=== PATIENT | male | born 1935 | race Caucasian/White ===

== ENCOUNTER 2021-04-18 17:39 | Inpatient (IN) | payer BC, SELFPAY ==
[~2021-04-18] VITALS: Ht 177.8 cm; Wt 81.6 kg
[~2021-04-18 17:39] MED LIST: ALBMDI INH; ASCO500T20 PO; DEXA6TAB5 PO; DOXY-244 PO; NITR-85 PO; TAMS-11 PO; VITD2000 PO; ZINC220T4 PO
[2021-04-18 17:58] VITALS: BP_SYST 175
[2021-04-18] MEDS ORDERED: MORPHINE 4 MG INJ. 4 MG/ML VIAL IVP ONE (21:30)
[2021-04-18 21:58] LABS: BASOPHILS # (AUTO) 0.1 K/uL (0.0-0.2); BASOPHILS % (AUTO) 0.4 % (0.0-2.0); EOSINOPHILS % (AUTO) 0.1 % (0.0-4.0); LYMPHOCYTES # (AUTO) 1.2 K/uL (1.0-5.5); MEAN CORPUSCULAR HEMOGLOBIN 32 pg (27-31); MEAN CORPUSCULAR HGB CONC 33 % (32-36); MEAN CORPUSCULAR VOLUME 95 fL (79.0-98.0); MONOCYTES % (AUTO) 6.8 % (1.7-9.3); NEUTROPHILS # (AUTO) 12.2 K/uL (1.8-7.7); NEUTROPHILS % (AUTO) 84.7 % (40.0-70.0); PLATELET COUNT (AUTO) 260 K/uL (130-430); RED BLOOD CELL COUNT(AUTO) 3.47 MIL/uL (4.2-6.2); RED CELL DISTRIBUTION WIDTH 12.8 % (9.0-15.0); WHITE BLOOD COUNT (AUTO) 14.4 K/uL (4.8-10.8)
[2021-04-18 22:30] LABS: ANION GAP 9 (5-15); CALCIUM 9.3 mg/dL (8.4-11.0); CHLORIDE 104 mmol/L (98-107); CREATININE 2.16 mg/dL (0.55-1.30); GLUCOSE 133 mg/dL (70-99); POTASSIUM 5.2 mmol/L (3.5-5.1); SODIUM SERUM 137 mmol/L (136-145); UREA NITROGEN, BLOOD 34 mg/dL (8-21)
[2021-04-18 22:41] LABS: PROTHROMBIN TIME 10.2 SECS (9.5-12.5)
[2021-04-19] MEDS ORDERED: LORazepam 2 MG/ML VIAL IVP ONE
[2021-04-19] MEDS ORDERED: HYDROcodone/ACETAMIN 5-325 MG TAB (NORCO/ VICODIN) PO PRN (00:45)
[2021-04-19] MEDS ORDERED: MORPHINE 4 MG INJ. 4 MG/ML VIAL IVP PRN (00:45)
[2021-04-19] MEDS ORDERED: MORPHINE 2 MG/ML INJ. SYRINGE IVP PRN (00:45)
[2021-04-19] MEDS ORDERED: NACL 0.9% 1,000 ML IV SCH (00:45)
[2021-04-19 08:13] VITALS: BP_SYST 153
[2021-04-19 08:29] VITALS: BP_SYST 153
[2021-04-19] MEDS ORDERED: ALBUTEROL SULFATE 0.083% 2.5 MG/3 ML VIAL.NEB INH PRN (10:00)
[2021-04-19] MEDS ORDERED: IPRATROPIUM BROM 0.5 MG/2.5 ML VIAL.NEB (ATROVENT) INH PRN (10:00)
[2021-04-19 10:29] LABS: BASOPHILS # (AUTO) 0.1 K/uL (0.0-0.2); BASOPHILS % (AUTO) 0.6 % (0.0-2.0); EOSINOPHILS # (AUTO) 0.2 K/uL (0.0-0.4); EOSINOPHILS % (AUTO) 1.9 % (0.0-4.0); HEMATOCRIT 31.6 % (36-54); HEMOGLOBIN 10.6 g/dL (14.0-18.0); LYMPHOCYTES # (AUTO) 1.6 K/uL (1.0-5.5); LYMPHOCYTES % (AUTO) 14.1 % (20.5-51.5); MEAN CORPUSCULAR HEMOGLOBIN 32 pg (27-31); MEAN CORPUSCULAR HGB CONC 34 % (32-36); MEAN CORPUSCULAR VOLUME 95 fL (79.0-98.0); MONOCYTES # (AUTO) 1.1 K/uL (0.0-1.0); MONOCYTES % (AUTO) 9.7 % (1.7-9.3); NEUTROPHILS # (AUTO) 8.5 K/uL (1.8-7.7); NEUTROPHILS % (AUTO) 73.7 % (40.0-70.0); PLATELET COUNT (AUTO) 227 K/uL (130-430); RED BLOOD CELL COUNT(AUTO) 3.33 MIL/uL (4.2-6.2); WHITE BLOOD COUNT (AUTO) 11.5 K/uL (4.8-10.8)
[2021-04-19 10:40] LABS: ANION GAP 10 (5-15); CALCIUM 8.7 mg/dL (8.4-11.0); CHLORIDE 111 mmol/L (98-107); CREATININE 1.97 mg/dL (0.55-1.30); GLUCOSE 105 mg/dL (70-99); POTASSIUM 4.9 mmol/L (3.5-5.1); SODIUM SERUM 146 mmol/L (136-145); UREA NITROGEN, BLOOD 32 mg/dL (8-21)
[2021-04-19 10:46] LABS: ALANINE AMINOTRANSFERASE 21 U/L (12-78); ALBUMIN 3.4 g/dL (3.4-4.8); ASPARTATE AMINOTRANSFERASE 25 U/L (10-37); TOTAL BILIRUBIN 0.8 mg/dL (0.0-1.0)
[2021-04-19] MEDS: IPRATROPIUM BROM 0.5 MG/2.5 ML VIAL.NEB (ATROVENT) INH SCH ×4 (11:00→23:00)
[2021-04-19] MEDS: ALBUTEROL SULFATE 0.083% 2.5 MG/3 ML VIAL.NEB INH SCH ×4 (11:00→23:00)
[2021-04-19] MEDS ORDERED: TAMSULOSIN HCL 0.4 MG CAP PO ONE (11:45)
[2021-04-19 12:12] VITALS: BP_SYST 158
[2021-04-19] MEDS ORDERED: hydrALAZINE HCL 25 MG TABLET PO PRN (15:45)
[2021-04-19] MEDS ORDERED: ASPIRIN 81 MG TABLET(ECOTRIN) PO ONE (15:45)
[2021-04-19 16:28] VITALS: BP_SYST 150
[2021-04-19 19:13] LABS: BILIRUBIN,URINE NEGATIVE (NEGATIVE); BLOOD, URINE 3+ (NEGATIVE); CLARITY/URINE CLEAR (CLEAR); COLOR,URINE YELLOW (YELLOW); GLUCOSE,URINE NEGATIVE (NEGATIVE); KETONES,URINE NEGATIVE (NEGATIVE); LEUKOCYTE ESTERASE ,URINE NEGATIVE (NEGATIVE); NITRITE, URINE NEGATIVE (NEGATIVE); PH,URINE 5.5 (5.0-8.0); PROTEIN URINE TRACE (NEGATIVE); UROBILINOGEN,URINE 0.2 (0.2-1.0)
[2021-04-19 19:18] LABS: URINE SULFO SALICYLIC ACID NEGATIVE (NEGATIVE)
[2021-04-19 19:21] LABS: BACTERIA,URINE None Seen /HPF (None Seen); CALCIUM OXALATE CRYSTALS,UR None Seen /HPF (None Seen); CALCIUM PHOSPHATE CRYSTALS,UR None Seen /HPF (None Seen); TRICHOMONAS,URINE None Seen /HPF (None Seen); WBC,URINE NONE SEEN /HPF (0-3); YEAST,URINE None Seen /HPF (None Seen)
[2021-04-19 20:00] VITALS: BP_SYST 142
[2021-04-20] VITALS: BP_SYST 131
[2021-04-20] MEDS: ALBUTEROL SULFATE 0.083% 2.5 MG/3 ML VIAL.NEB INH SCH ×6 (03:00→23:00)
[2021-04-20] MEDS: IPRATROPIUM BROM 0.5 MG/2.5 ML VIAL.NEB (ATROVENT) INH SCH ×6 (03:00→23:00)
[2021-04-20 06:25] LABS: BILIRUBIN,URINE NEGATIVE (NEGATIVE); BLOOD, URINE 3+ (NEGATIVE); CLARITY/URINE CLEAR (CLEAR); COLOR,URINE YELLOW (YELLOW); GLUCOSE,URINE NEGATIVE (NEGATIVE); KETONES,URINE NEGATIVE (NEGATIVE); LEUKOCYTE ESTERASE ,URINE TRACE (NEGATIVE); NITRITE, URINE NEGATIVE (NEGATIVE); PROTEIN URINE 1+ (NEGATIVE); UROBILINOGEN,URINE 0.2 (0.2-1.0)
[2021-04-20 06:31] LABS: BASOPHILS % (AUTO) 0.3 % (0.0-2.0); EOSINOPHILS # (AUTO) 0.8 K/uL (0.0-0.4); EOSINOPHILS % (AUTO) 6.8 % (0.0-4.0); HEMOGLOBIN 9.4 g/dL (14.0-18.0); LYMPHOCYTES # (AUTO) 2.8 K/uL (1.0-5.5); LYMPHOCYTES % (AUTO) 24.1 % (20.5-51.5); MEAN CORPUSCULAR HEMOGLOBIN 32 pg (27-31); MEAN CORPUSCULAR HGB CONC 34 % (32-36); MEAN CORPUSCULAR VOLUME 96 fL (79.0-98.0); MONOCYTES # (AUTO) 1.3 K/uL (0.0-1.0); MONOCYTES % (AUTO) 10.6 % (1.7-9.3); NEUTROPHILS # (AUTO) 6.9 K/uL (1.8-7.7); NEUTROPHILS % (AUTO) 58.2 % (40.0-70.0); PLATELET COUNT (AUTO) 194 K/uL (130-430); RED BLOOD CELL COUNT(AUTO) 2.93 MIL/uL (4.2-6.2); WHITE BLOOD COUNT (AUTO) 11.8 K/uL (4.8-10.8)
[2021-04-20 06:53] LABS: ANION GAP 9 (5-15); CALCIUM 8.4 mg/dL (8.4-11.0); CHLORIDE 104 mmol/L (98-107); CREATININE 2.06 mg/dL (0.55-1.30); GLUCOSE 107 mg/dL (70-99); POTASSIUM 4.4 mmol/L (3.5-5.1); SODIUM SERUM 136 mmol/L (136-145); UREA NITROGEN, BLOOD 34 mg/dL (8-21)
[2021-04-20 07:46] LABS: BACTERIA,URINE None Seen /HPF (None Seen); MUCUS,URINE 1+ /LPF (None Seen); RBC,URINE 20-50 /HPF (0-3)
[2021-04-20 08:00] VITALS: BP_SYST 149
[2021-04-20] MEDS ORDERED: SEVOFLURANE 15 MIN GAS INH ONE (08:16)
[2021-04-20] MEDS ORDERED: WATER FOR IRRIGATION,STERILE 1,000 ML IRRIG.SOLN IR ONE (08:16)
[2021-04-20] MEDS ORDERED: NS IRRIG SOLN 1000 ML IR ONE (08:16)
[2021-04-20] MEDS ORDERED: KETOROLAC TROMETHAMINE 30 MG VIAL IVP ONE (08:16)
[2021-04-20] MEDS ORDERED: METOCLOPRAMIDE HCL 10 MG/2 ML VIAL IVP ONE (08:16)
[2021-04-20] MEDS ORDERED: BUPIVACAINE /EPINEPHRINE/PF 0.5% 30 ML VIAL INJ ONE (08:16)
[2021-04-20] MEDS ORDERED: ROCURONIUM BROMIDE 10 MG/ML (ZEMURON) IV ONE (08:16)
[2021-04-20] MEDS ORDERED: ePHEDrine sulfate 50 MG/ML VIAL IVP ONE (08:16)
[2021-04-20] MEDS ORDERED: PROPOFOL 200MG/ 20ML VIAL (DIPRIVAN) IV ONE (08:16)
[2021-04-20] MEDS ORDERED: GLYCOPYRROLATE 0.2 MG/ML VIAL IJ ONE (08:16)
[2021-04-20] MEDS ORDERED: CEFAZOLIN 2 GM IVPB PREMIX 50 ML IV ONE (08:16)
[2021-04-20] MEDS ORDERED: DEXAMETHASONE SOD PHOSPHATE 4 MG/ML VIAL IVP ONE (08:16)
[2021-04-20] MEDS ORDERED: TRANEXAMIC ACID 1,000 MG/10 ML VIAL IV ONE (08:16)
[2021-04-20] MEDS ORDERED: fentaNYL CITRATE/PF 100 MCG/2 ML AMP IVP ONE (08:16)
[2021-04-20] MEDS ORDERED: NEOSTIGMINE METHYLSULFATE 1 MG/ML, 10 ML VIAL IVP ONE (08:16)
[2021-04-20] MEDS ORDERED: LR 1,000 ML IV.SOLN IV ONE (08:16)
[2021-04-20] MEDS ORDERED: ONDANSETRON HCL 4 MG/2 ML VIAL IVP ONE (08:16)
[2021-04-20 08:53] LABS: PROTHROMBIN TIME 10.6 SECS (9.5-12.5)
[2021-04-20] MEDS: ASPIRIN 81 MG TABLET(ECOTRIN) PO SCH (09:00)
[2021-04-20] MEDS: TAMSULOSIN HCL 0.4 MG CAP PO SCH (09:00)
[2021-04-20] MEDS ORDERED: KETOROLAC TROMETHAMINE 30 MG VIAL IVP PRN (09:15)
[2021-04-20] MEDS ORDERED: HYDROmorphone 1 MG/ML INJ. CARTRIDGE IVP PRN (09:15)
[2021-04-20] MEDS ORDERED: NALOXONE HCL 0.4 MG/ML AMP (NARCAN) IVP PRN ×3 (09:15→10:45)
[2021-04-20] MEDS ORDERED: LR 1,000 ML IV SCH (09:15)
[2021-04-20] MEDS ORDERED: ONDANSETRON HCL 4 MG/2 ML VIAL IVP PRN (09:15)
[2021-04-20] MEDS ORDERED: LABETALOL 100 MG/ 20ML VIAL IVP PRN (09:15)
[2021-04-20] MEDS ORDERED: MEPERIDINE HCL/PF 25 MG/ML DISP.SYRIN IVP PRN (09:15)
[2021-04-20] MEDS ORDERED: BUPIVACAINE LIPOSOME/PF 266 MG/20 ML VIAL INFIL ONE (09:45)
[2021-04-20 11:30] VITALS: BP_SYST 123
[2021-04-20] MEDS ORDERED: HYDROcodone/ACETAMIN 5-325 MG TAB (NORCO/ VICODIN) PO PRN (12:30)
[2021-04-20] MEDS: CEFAZOLIN 1 GM IVPB PREMIX 50 ML IV SCH ×2 (14:23→21:05)
[2021-04-20 16:01] VITALS: BP_SYST 107
[2021-04-20 16:04] LABS: ANION GAP 9 (5-15); CALCIUM 7.8 mg/dL (8.4-11.0); CHLORIDE 103 mmol/L (98-107); CREATININE 2.23 mg/dL (0.55-1.30); GLUCOSE 231 mg/dL (70-99); POTASSIUM 4.7 mmol/L (3.5-5.1); SODIUM SERUM 135 mmol/L (136-145); UREA NITROGEN, BLOOD 38 mg/dL (8-21)
[2021-04-20 16:08] LABS: ALANINE AMINOTRANSFERASE 16 U/L (12-78); ALBUMIN 2.6 g/dL (3.4-4.8); ASPARTATE AMINOTRANSFERASE 26 U/L (10-37); TOTAL BILIRUBIN 0.3 mg/dL (0.0-1.0)
[2021-04-20 20:00] VITALS: BP_SYST 121
[2021-04-20] MEDS: ASCORBIC ACID 500 MG TABLET PO SCH (21:04)
[2021-04-20] MEDS: DOCUSATE SODIUM 100 MG CAPSULE PO SCH (21:04)
[2021-04-21 00:09] VITALS: BP_SYST 145
[2021-04-21] MEDS: ALBUTEROL SULFATE 0.083% 2.5 MG/3 ML VIAL.NEB INH SCH ×6 (03:00→23:00)
[2021-04-21] MEDS: IPRATROPIUM BROM 0.5 MG/2.5 ML VIAL.NEB (ATROVENT) INH SCH ×6 (03:00→23:00)
[2021-04-21 08:03] LABS: BASOPHILS % (AUTO) 0.2 % (0.0-2.0); EOSINOPHILS # (AUTO) 0.2 K/uL (0.0-0.4); EOSINOPHILS % (AUTO) 1.2 % (0.0-4.0); HEMATOCRIT 24.3 % (36-54); HEMOGLOBIN 8.2 g/dL (14.0-18.0); LYMPHOCYTES # (AUTO) 2.3 K/uL (1.0-5.5); LYMPHOCYTES % (AUTO) 17.9 % (20.5-51.5); MEAN CORPUSCULAR HEMOGLOBIN 32 pg (27-31); MEAN CORPUSCULAR HGB CONC 34 % (32-36); MEAN CORPUSCULAR VOLUME 95 fL (79.0-98.0); MONOCYTES # (AUTO) 1.6 K/uL (0.0-1.0); MONOCYTES % (AUTO) 12.5 % (1.7-9.3); NEUTROPHILS # (AUTO) 8.9 K/uL (1.8-7.7); NEUTROPHILS % (AUTO) 68.2 % (40.0-70.0); PLATELET COUNT (AUTO) 184 K/uL (130-430); RED BLOOD CELL COUNT(AUTO) 2.57 MIL/uL (4.2-6.2); RED CELL DISTRIBUTION WIDTH 12.9 % (9.0-15.0); WHITE BLOOD COUNT (AUTO) 13.1 K/uL (4.8-10.8)
[2021-04-21 08:05] VITALS: BP_SYST 117
[2021-04-21] MEDS: ASPIRIN 81 MG TABLET(ECOTRIN) PO SCH (08:48)
[2021-04-21] MEDS: ASCORBIC ACID 500 MG TABLET PO SCH ×2 (08:48→21:02)
[2021-04-21] MEDS: TAMSULOSIN HCL 0.4 MG CAP PO SCH (08:48)
[2021-04-21] MEDS: ENOXAPARIN SODIUM 40 MG/0.4 ML SYRINGE SUBCUT SCH (08:50)
[2021-04-21] MEDS: DOCUSATE SODIUM 100 MG CAPSULE PO SCH ×2 (08:51→21:02)
[2021-04-21 09:03] LABS: ANION GAP 8 (5-15); CALCIUM 7.9 mg/dL (8.4-11.0); CHLORIDE 104 mmol/L (98-107); CREATININE 2.21 mg/dL (0.55-1.30); GLUCOSE 148 mg/dL (70-99); POTASSIUM 4.5 mmol/L (3.5-5.1); SODIUM SERUM 136 mmol/L (136-145); UREA NITROGEN, BLOOD 43 mg/dL (8-21)
[2021-04-21 11:21] VITALS: BP_SYST 118
[2021-04-21 15:43] VITALS: BP_SYST 112
[2021-04-21 20:00] VITALS: BP_SYST 128
[2021-04-21] MEDS: HYDROcodone/ACETAMIN 5-325 MG TAB (NORCO/ VICODIN) PO PRN (21:02)
[2021-04-22] VITALS: BP_SYST 111
[2021-04-22] MEDS: ALBUTEROL SULFATE 0.083% 2.5 MG/3 ML VIAL.NEB INH SCH ×6 (03:00→23:00)
[2021-04-22] MEDS: IPRATROPIUM BROM 0.5 MG/2.5 ML VIAL.NEB (ATROVENT) INH SCH ×6 (03:00→23:00)
[2021-04-22 07:02] LABS: BASOPHILS % (AUTO) 0.3 % (0.0-2.0); EOSINOPHILS # (AUTO) 0.8 K/uL (0.0-0.4); EOSINOPHILS % (AUTO) 6.9 % (0.0-4.0); HEMATOCRIT 23.2 % (36-54); HEMOGLOBIN 7.7 g/dL (14.0-18.0); LYMPHOCYTES # (AUTO) 3.3 K/uL (1.0-5.5); LYMPHOCYTES % (AUTO) 27.2 % (20.5-51.5); MEAN CORPUSCULAR HEMOGLOBIN 32 pg (27-31); MEAN CORPUSCULAR HGB CONC 33 % (32-36); MEAN CORPUSCULAR VOLUME 96 fL (79.0-98.0); MONOCYTES # (AUTO) 1.6 K/uL (0.0-1.0); MONOCYTES % (AUTO) 13.4 % (1.7-9.3); NEUTROPHILS # (AUTO) 6.3 K/uL (1.8-7.7); NEUTROPHILS % (AUTO) 52.2 % (40.0-70.0); PLATELET COUNT (AUTO) 202 K/uL (130-430); RED BLOOD CELL COUNT(AUTO) 2.43 MIL/uL (4.2-6.2); RED CELL DISTRIBUTION WIDTH 12.9 % (9.0-15.0); WHITE BLOOD COUNT (AUTO) 12.1 K/uL (4.8-10.8)
[2021-04-22 08:00] VITALS: BP_SYST 136
[2021-04-22] MEDS: ASCORBIC ACID 500 MG TABLET PO SCH ×2 (08:36→20:57)
[2021-04-22] MEDS: TAMSULOSIN HCL 0.4 MG CAP PO SCH (08:36)
[2021-04-22] MEDS: ENOXAPARIN SODIUM 40 MG/0.4 ML SYRINGE SUBCUT SCH (08:36)
[2021-04-22] MEDS: ASPIRIN 81 MG TABLET(ECOTRIN) PO SCH (08:37)
[2021-04-22 08:44] VITALS: BP_SYST 111
[2021-04-22] MEDS: DOCUSATE SODIUM 100 MG CAPSULE PO SCH ×2 (09:00→20:58)
[2021-04-22 09:48] LABS: ALANINE AMINOTRANSFERASE 12 U/L (12-78); ALBUMIN 2.2 g/dL (3.4-4.8); ANION GAP 10 (5-15); ASPARTATE AMINOTRANSFERASE 37 U/L (10-37); CALCIUM 7.4 mg/dL (8.4-11.0); CHLORIDE 100 mmol/L (98-107); CREATININE 2.11 mg/dL (0.55-1.30); GLUCOSE 111 mg/dL (70-99); POTASSIUM 4.4 mmol/L (3.5-5.1); SODIUM SERUM 130 mmol/L (136-145); TOTAL BILIRUBIN 0.4 mg/dL (0.0-1.0); UREA NITROGEN, BLOOD 39 mg/dL (8-21)
[2021-04-22 12:00] VITALS: BP_SYST 124
[2021-04-22 18:05] VITALS: BP_SYST 130
[2021-04-22 20:00] VITALS: BP_SYST 119
[2021-04-23 00:02] VITALS: BP_SYST 129
[2021-04-23] MEDS: HYDROcodone/ACETAMIN 5-325 MG TAB (NORCO/ VICODIN) PO PRN (03:34)
[2021-04-23] MEDS: ALBUTEROL SULFATE 0.083% 2.5 MG/3 ML VIAL.NEB INH SCH ×3 (07:00→14:59)
[2021-04-23] MEDS: IPRATROPIUM BROM 0.5 MG/2.5 ML VIAL.NEB (ATROVENT) INH SCH ×3 (07:00→14:59)
[2021-04-23 08:00] VITALS: BP_SYST 122
[2021-04-23] MEDS: ASPIRIN 81 MG TABLET(ECOTRIN) PO SCH (08:25)
[2021-04-23] MEDS: TAMSULOSIN HCL 0.4 MG CAP PO SCH (08:25)
[2021-04-23] MEDS: DOCUSATE SODIUM 100 MG CAPSULE PO SCH (08:25)
[2021-04-23] MEDS: ASCORBIC ACID 500 MG TABLET PO SCH (08:25)
[2021-04-23] MEDS: ENOXAPARIN SODIUM 40 MG/0.4 ML SYRINGE SUBCUT SCH (08:31)
[2021-04-23 11:24] VITALS: BP_SYST 117
[2021-04-23 15:56] VITALS: BP_SYST 120
[2021-04-23 16:08] LABS: HEMATOCRIT 25.8 % (36-54); HEMOGLOBIN 8.7 g/dL (14.0-18.0); MEAN CORPUSCULAR HEMOGLOBIN 32 pg (27-31); MEAN CORPUSCULAR HGB CONC 34 % (32-36); MEAN CORPUSCULAR VOLUME 94 fL (79.0-98.0); PLATELET COUNT (AUTO) 283 K/uL (130-430); RED BLOOD CELL COUNT(AUTO) 2.73 MIL/uL (4.2-6.2); RED CELL DISTRIBUTION WIDTH 12.7 % (9.0-15.0); WHITE BLOOD COUNT (AUTO) 12.3 K/uL (4.8-10.8)
[2021-04-23 18:46] LABS: BASOPHILS % (MANUAL) 0 % (0-2); EOSINOPHILS % (MANUAL) 4 % (0-7); LYMPHOCYTES % (MANUAL) 26 % (20-46); MONOCYTES % (MANUAL) 11 % (0-11)
[2021-04-23 20:21] VITALS: BP_SYST 141
== END 2021-04-23 21:15 | DRG 522 ==
LOC: SED 17:39 → STU 04-19 00:39 → SMU 04-19 07:28
PROVIDERS: ADMIT Internal Medicine Hospice and Palliative Medicine; ATTEND Internal Medicine Hospice and Palliative Medicine
PROC: 0SRS0JZ Replacement of Left Hip Joint, Femoral Surface with Synthetic Substitute, Open Approach (ICD-10-PCS; principal; 2021-04-20 07:30)
DX: S72.012A Unspecified intracapsular fracture of left femur, initial encounter for closed fracture (principal); I25.10 Atherosclerotic heart disease of native coronary artery without angina pectoris; M16.12 Unilateral primary osteoarthritis, left hip; Z20.822 Contact with and (suspected) exposure to COVID-19; S50.02XA Contusion of left elbow, initial encounter; I13.10 Hypertensive heart and chronic kidney disease without heart failure, with stage 1 through stage 4 chronic kidney disease, or unspecified chronic kidney disease; E03.9 Hypothyroidism, unspecified; N40.0 Benign prostatic hyperplasia without lower urinary tract symptoms; N18.30 Chronic kidney disease, stage 3 unspecified; W01.0XXA Fall on same level from slipping, tripping and stumbling without subsequent striking against object, initial encounter; Z98.61 Coronary angioplasty status; Z79.899 Other long term (current) drug therapy; I25.2 Old myocardial infarction; Y93.89 Activity, other specified; Y92.89 Other specified places as the place of occurrence of the external cause; Y99.8 Other external cause status
CPT/HCPCS: 36415; 71045; 72170-TC; 73502; 80048; 80053; 81000; 82962; 85007; 85025; 85027; 85610-TC; 85730-TC; 86886; 86900; 86901; 87081; 88305; 88311; 93005; 93306; 94760; 96374; 97110-GP; 97116-GP; 97530-GP; 99285; C1713; C1776; C9290; J0690; J1100; J1650; J1885; J2060; J2270; J2405; J2704; J2710; J2765; J3010; J3490; J7120; J7613

== ENCOUNTER 2023-10-16 13:42 | Inpatient (IN) | payer BC ==
[~2023-10-16] VITALS: Ht 175.3 cm; Wt 75.7 kg
[~2023-10-16 13:42] MED LIST changes: -DEXA6TAB5 PO; -DOXY-244 PO; -NITR-85 PO; -ZINC220T4 PO
[2023-10-16 15:18] LABS: BASOPHILS % (AUTO) 0.4 % (0.0-2.0); EOSINOPHILS # (AUTO) 0.1 K/uL (0.0-0.4); EOSINOPHILS % (AUTO) 0.5 % (0.0-4.0); HEMATOCRIT 25.1 % (36-54); HEMOGLOBIN 8.4 g/dL (14.0-18.0); LYMPHOCYTES % (AUTO) 10.9 % (20.5-51.5); MEAN CORPUSCULAR HEMOGLOBIN 31 pg (27-31); MEAN CORPUSCULAR HGB CONC 34 % (32-36); MEAN CORPUSCULAR VOLUME 91 fL (79.0-98.0); MONOCYTES # (AUTO) 0.9 K/uL (0.0-1.0); MONOCYTES % (AUTO) 9.4 % (1.7-9.3); NEUTROPHILS # (AUTO) 7.3 K/uL (1.8-7.7); NEUTROPHILS % (AUTO) 78.8 % (40.0-70.0); PLATELET COUNT (AUTO) 417 K/uL (130-430); RED BLOOD CELL COUNT(AUTO) 2.76 MIL/uL (4.2-6.2); RED CELL DISTRIBUTION WIDTH 13.3 % (9.0-15.0); WHITE BLOOD COUNT (AUTO) 9.3 K/uL (4.8-10.8)
[2023-10-16 15:33] LABS: INR 1.1 (0.80-1.20); PROTHROMBIN TIME 11.1 SECS (9.5-12.5)
[2023-10-16 15:38] LABS: BILIRUBIN,URINE NEGATIVE (NEGATIVE); BLOOD, URINE NEGATIVE (NEGATIVE); CLARITY/URINE CLEAR (CLEAR); COLOR,URINE YELLOW (YELLOW); GLUCOSE,URINE NEGATIVE (NEGATIVE); KETONES,URINE NEGATIVE (NEGATIVE); LEUKOCYTE ESTERASE ,URINE NEGATIVE (NEGATIVE); NITRITE, URINE NEGATIVE (NEGATIVE); PROTEIN URINE TRACE (NEGATIVE); UROBILINOGEN,URINE 0.2 (0.2-1.0)
[2023-10-16 16:09] LABS: ALANINE AMINOTRANSFERASE 11 U/L (12-78); AMYLASE 51 U/L (0-100); ANION GAP 17 (5-15); ASPARTATE AMINOTRANSFERASE 15 U/L (10-37); BILIRUBIN,DIRECT 0.1 mg/dL (0.0-0.3); CALCIUM 8.8 mg/dL (8.4-11.0); CARBON DIOXIDE 18 mmol/L (23-29); CHLORIDE 102 mmol/L (98-107); CREATININE 2.55 mg/dL (0.55-1.30); GLUCOSE 118 mg/dL (74-106); LACTATE DEHYDROGENASE 172 U/L (85-227); LIPASE 50 U/L (16-77); POTASSIUM 4.3 mmol/L (3.5-5.1); SODIUM SERUM 137 mmol/L (136-145); TOTAL BILIRUBIN 0.4 mg/dL (0.0-1.0); TOTAL PROTEIN, SERUM 8.1 g/dL (6.4-8.3); UREA NITROGEN, BLOOD 45 mg/dL (8-21)
[2023-10-16] MEDS: PANTOPRAZOLE SODIUM 80 MG in NS 100 ML IVP ONE (16:26)
[2023-10-16] MEDS ORDERED: PANTOPRAZOLE SODIUM 40 MG/VIAL (PROTONIX) ONE (16:29)
[2023-10-16] MEDS ORDERED: TERAZOSIN (16:39)
[2023-10-16] MEDS ORDERED: ATOR20TA64 PO (16:39)
[2023-10-16] MEDS ORDERED: LEVO75TA7 PO (16:39)
[2023-10-16] MEDS ORDERED: FURO20TA4 PO (16:39)
[2023-10-16] MEDS ORDERED: MELOXICAM (16:39)
[2023-10-16] MEDS ORDERED: METO-304 PO (16:39)
[2023-10-16 16:44] VITALS: BP_SYST 159; PULSE 80; RESP 18; TEMP 97.7; O2SAT 98
[2023-10-16] MEDS: ACETAMINOPHEN 500 MG TABLET PO ONE (16:46)
[2023-10-16] MEDS ORDERED: ACETAMINOPHEN 500 MG TABLET ONE (16:48)
[2023-10-16] MEDS: NACL 0.9% 1,000 ML IV ONE (16:57)
[2023-10-16] MEDS: ONDANSETRON HCL 4 MG/2 ML VIAL IVP ONE ×2 (16:58→18:24)
[2023-10-16] MEDS ORDERED: ACETAMINOPHEN 325 MG TABLET PO PRN ×2 (17:15→17:30)
[2023-10-16] MEDS ORDERED: HYDROcodone/ACETAMIN 5-325 MG TAB (NORCO/ VICODIN) PO PRN (17:15)
[2023-10-16] MEDS ORDERED: ONDANSETRON HCL 4 MG/2 ML VIAL IVP PRN (17:15)
[2023-10-16] MEDS ORDERED: ALBUTEROL SULFATE 0.083% 2.5 MG/3 ML VIAL.NEB INH PRN (17:15)
[2023-10-16] MEDS ORDERED: MORPHINE 2 MG/ML INJ. SYRINGE IVP PRN (17:15)
[2023-10-16] MEDS: MORPHINE 2 MG/ML INJ. SYRINGE IVP ONE (17:20)
[2023-10-16 17:30] VITALS: PULSE 73; O2SAT 97
[2023-10-16] MEDS: METOPROLOL SUCCINATE 25 MG TAB.SR.24H (TOPROL XL) PO ONE (18:23)
[2023-10-16] MEDS: NACL 0.9% 1,000 ML IV SCH (19:37)
[2023-10-16 21:06] LABS: BASOPHILS % (AUTO) 0.3 % (0.0-2.0); EOSINOPHILS % (AUTO) 0.3 % (0.0-4.0); HEMATOCRIT 23.1 % (36-54); HEMOGLOBIN 7.8 g/dL (14.0-18.0); LYMPHOCYTES # (AUTO) 0.9 K/uL (1.0-5.5); LYMPHOCYTES % (AUTO) 10.3 % (20.5-51.5); MEAN CORPUSCULAR HEMOGLOBIN 31 pg (27-31); MEAN CORPUSCULAR HGB CONC 34 % (32-36); MEAN CORPUSCULAR VOLUME 92 fL (79.0-98.0); MONOCYTES # (AUTO) 1.1 K/uL (0.0-1.0); MONOCYTES % (AUTO) 12.3 % (1.7-9.3); NEUTROPHILS # (AUTO) 6.6 K/uL (1.8-7.7); NEUTROPHILS % (AUTO) 76.8 % (40.0-70.0); PLATELET COUNT (AUTO) 296 K/uL (130-430); RED BLOOD CELL COUNT(AUTO) 2.51 MIL/uL (4.2-6.2); RED CELL DISTRIBUTION WIDTH 13.7 % (9.0-15.0); WHITE BLOOD COUNT (AUTO) 8.6 K/uL (4.8-10.8)
[2023-10-17] VITALS (7 sets, daily range): BP systolic 119–156; PULSE 64–66; RESP 14–18; TEMP 97.3–98.4; O2SAT 94–100
[2023-10-17 05:23] LABS: BASOPHILS % (AUTO) 0.7 % (0.0-2.0); EOSINOPHILS # (AUTO) 0.2 K/uL (0.0-0.4); EOSINOPHILS % (AUTO) 2.8 % (0.0-4.0); LYMPHOCYTES # (AUTO) 0.9 K/uL (1.0-5.5); LYMPHOCYTES % (AUTO) 14.7 % (20.5-51.5); MEAN CORPUSCULAR HEMOGLOBIN 31 pg (27-31); MEAN CORPUSCULAR HGB CONC 34 % (32-36); MEAN CORPUSCULAR VOLUME 92 fL (79.0-98.0); MONOCYTES # (AUTO) 0.9 K/uL (0.0-1.0); NEUTROPHILS % (AUTO) 66.8 % (40.0-70.0); PLATELET COUNT (AUTO) 338 K/uL (130-430); RED BLOOD CELL COUNT(AUTO) 2.17 MIL/uL (4.2-6.2); RED CELL DISTRIBUTION WIDTH 13.3 % (9.0-15.0); WHITE BLOOD COUNT (AUTO) 5.9 K/uL (4.8-10.8)
[2023-10-17 05:26] LABS: ALANINE AMINOTRANSFERASE 10 U/L (12-78); ALBUMIN 2.4 g/dL (3.4-4.8); ANION GAP 10 (5-15); ASPARTATE AMINOTRANSFERASE 15 U/L (10-37); CALCIUM 8.2 mg/dL (8.4-11.0); CARBON DIOXIDE 21 mmol/L (23-29); CHLORIDE 109 mmol/L (98-107); CREATININE 2.19 mg/dL (0.55-1.30); GLUCOSE 85 mg/dL (74-106); POTASSIUM 4.4 mmol/L (3.5-5.1); SODIUM SERUM 140 mmol/L (136-145); TOTAL BILIRUBIN 0.3 mg/dL (0.0-1.0); TOTAL PROTEIN, SERUM 6.4 g/dL (6.4-8.3); UREA NITROGEN, BLOOD 41 mg/dL (8-21)
[2023-10-17] MEDS: LEVOTHYROXINE SODIUM 0.075 MG TABLET PO SCH (06:25)
[2023-10-17 08:00] LABS: HEMATOCRIT 19.9 % (36-54); HEMOGLOBIN 6.8 g/dL (14.0-18.0)
[2023-10-17] MEDS: METOPROLOL SUCCINATE 25 MG TAB.SR.24H (TOPROL XL) PO SCH (08:42)
[2023-10-17] MEDS ORDERED: DIATR MEGLU/DIATRIZ SOD 30 ML SOLUTION PO ONE (14:51)
[2023-10-17 17:55] LABS: BASOPHILS % (AUTO) 0.5 % (0.0-2.0); EOSINOPHILS # (AUTO) 0.2 K/uL (0.0-0.4); EOSINOPHILS % (AUTO) 2.9 % (0.0-4.0); HEMATOCRIT 28.1 % (36-54); HEMOGLOBIN 9.2 g/dL (14.0-18.0); LYMPHOCYTES # (AUTO) 0.8 K/uL (1.0-5.5); LYMPHOCYTES % (AUTO) 10.8 % (20.5-51.5); MEAN CORPUSCULAR HEMOGLOBIN 30 pg (27-31); MEAN CORPUSCULAR HGB CONC 33 % (32-36); MEAN CORPUSCULAR VOLUME 92 fL (79.0-98.0); MONOCYTES # (AUTO) 0.9 K/uL (0.0-1.0); MONOCYTES % (AUTO) 11.9 % (1.7-9.3); NEUTROPHILS # (AUTO) 5.4 K/uL (1.8-7.7); NEUTROPHILS % (AUTO) 73.9 % (40.0-70.0); PLATELET COUNT (AUTO) 320 K/uL (130-430); RED BLOOD CELL COUNT(AUTO) 3.05 MIL/uL (4.2-6.2); RED CELL DISTRIBUTION WIDTH 14.1 % (9.0-15.0); WHITE BLOOD COUNT (AUTO) 7.3 K/uL (4.8-10.8)
[2023-10-17] MEDS: PANTOPRAZOLE SODIUM 40 MG/VIAL (PROTONIX) IVP SCH (21:22)
[2023-10-18 00:14] VITALS: BP_SYST 135; PULSE 107; RESP 20; TEMP 97.4; O2SAT 100
[2023-10-18 06:16] LABS: BASOPHILS % (AUTO) 0.5 % (0.0-2.0); EOSINOPHILS # (AUTO) 0.1 K/uL (0.0-0.4); EOSINOPHILS % (AUTO) 2.1 % (0.0-4.0); HEMOGLOBIN 9.1 g/dL (14.0-18.0); LYMPHOCYTES # (AUTO) 0.9 K/uL (1.0-5.5); LYMPHOCYTES % (AUTO) 14.8 % (20.5-51.5); MEAN CORPUSCULAR HEMOGLOBIN 31 pg (27-31); MEAN CORPUSCULAR HGB CONC 34 % (32-36); MEAN CORPUSCULAR VOLUME 92 fL (79.0-98.0); MONOCYTES # (AUTO) 0.7 K/uL (0.0-1.0); MONOCYTES % (AUTO) 10.8 % (1.7-9.3); NEUTROPHILS # (AUTO) 4.5 K/uL (1.8-7.7); NEUTROPHILS % (AUTO) 71.8 % (40.0-70.0); PLATELET COUNT (AUTO) 360 K/uL (130-430); RED BLOOD CELL COUNT(AUTO) 2.94 MIL/uL (4.2-6.2); WHITE BLOOD COUNT (AUTO) 6.3 K/uL (4.8-10.8)
[2023-10-18 06:34] LABS: ALANINE AMINOTRANSFERASE 11 U/L (12-78); ALBUMIN 2.4 g/dL (3.4-4.8); ANION GAP 18 (5-15); ASPARTATE AMINOTRANSFERASE 18 U/L (10-37); CALCIUM 8.4 mg/dL (8.4-11.0); CARBON DIOXIDE 15 mmol/L (23-29); CHLORIDE 107 mmol/L (98-107); CREATININE 1.94 mg/dL (0.55-1.30); GLUCOSE 55 mg/dL (74-106); POTASSIUM 4.9 mmol/L (3.5-5.1); SODIUM SERUM 140 mmol/L (136-145); TOTAL BILIRUBIN 0.4 mg/dL (0.0-1.0); TOTAL PROTEIN, SERUM 6.8 g/dL (6.4-8.3); UREA NITROGEN, BLOOD 37 mg/dL (8-21)
[2023-10-18 07:55] VITALS: BP_SYST 130; PULSE 67; RESP 18; TEMP 98; O2SAT 98
[2023-10-18 08:10] VITALS: O2SAT 98
[2023-10-18 12:05] VITALS: BP_SYST 125; PULSE 61; RESP 18; TEMP 97.7; O2SAT 97
[2023-10-18 16:00] VITALS: BP_SYST 124; PULSE 64; RESP 18; TEMP 97.9; O2SAT 96
[2023-10-18 20:00] VITALS: O2SAT 98
[2023-10-19] VITALS (8 sets, daily range): BP systolic 113–144; PULSE 68–77; RESP 16–20; TEMP 96.8–97.7; O2SAT 93–99
[2023-10-19 06:34] LABS: BASOPHILS % (AUTO) 0.3 % (0.0-2.0); EOSINOPHILS # (AUTO) 0.2 K/uL (0.0-0.4); EOSINOPHILS % (AUTO) 3.8 % (0.0-4.0); HEMATOCRIT 26.9 % (36-54); LYMPHOCYTES # (AUTO) 0.8 K/uL (1.0-5.5); LYMPHOCYTES % (AUTO) 12.2 % (20.5-51.5); MEAN CORPUSCULAR HEMOGLOBIN 31 pg (27-31); MEAN CORPUSCULAR HGB CONC 33 % (32-36); MEAN CORPUSCULAR VOLUME 92 fL (79.0-98.0); MONOCYTES # (AUTO) 0.8 K/uL (0.0-1.0); MONOCYTES % (AUTO) 13.1 % (1.7-9.3); NEUTROPHILS # (AUTO) 4.5 K/uL (1.8-7.7); NEUTROPHILS % (AUTO) 70.6 % (40.0-70.0); PLATELET COUNT (AUTO) 351 K/uL (130-430); RED BLOOD CELL COUNT(AUTO) 2.92 MIL/uL (4.2-6.2); RED CELL DISTRIBUTION WIDTH 13.9 % (9.0-15.0); WHITE BLOOD COUNT (AUTO) 6.3 K/uL (4.8-10.8)
[2023-10-19 07:04] LABS: ALANINE AMINOTRANSFERASE 11 U/L (12-78); ALBUMIN 2.3 g/dL (3.4-4.8); ANION GAP 13 (5-15); ASPARTATE AMINOTRANSFERASE 19 U/L (10-37); CALCIUM 8.2 mg/dL (8.4-11.0); CARBON DIOXIDE 19 mmol/L (23-29); CHLORIDE 108 mmol/L (98-107); CREATININE 2.02 mg/dL (0.55-1.30); GLUCOSE 153 mg/dL (74-106); POTASSIUM 4.4 mmol/L (3.5-5.1); SODIUM SERUM 140 mmol/L (136-145); TOTAL BILIRUBIN 0.2 mg/dL (0.0-1.0); TOTAL PROTEIN, SERUM 6.7 g/dL (6.4-8.3); UREA NITROGEN, BLOOD 31 mg/dL (8-21)
[2023-10-20 00:23] VITALS: BP_SYST 125; PULSE 66; RESP 18; TEMP 96.3; O2SAT 95
[2023-10-20 04:38] LABS: BASOPHILS % (AUTO) 0.2 % (0.0-2.0); EOSINOPHILS # (AUTO) 0.2 K/uL (0.0-0.4); EOSINOPHILS % (AUTO) 2.6 % (0.0-4.0); HEMATOCRIT 26.5 % (36-54); HEMOGLOBIN 8.9 g/dL (14.0-18.0); LYMPHOCYTES % (AUTO) 14.6 % (20.5-51.5); MEAN CORPUSCULAR HEMOGLOBIN 31 pg (27-31); MEAN CORPUSCULAR HGB CONC 33 % (32-36); MEAN CORPUSCULAR VOLUME 92 fL (79.0-98.0); MONOCYTES # (AUTO) 0.9 K/uL (0.0-1.0); MONOCYTES % (AUTO) 13.1 % (1.7-9.3); NEUTROPHILS # (AUTO) 4.9 K/uL (1.8-7.7); NEUTROPHILS % (AUTO) 69.5 % (40.0-70.0); PLATELET COUNT (AUTO) 348 K/uL (130-430); RED CELL DISTRIBUTION WIDTH 13.9 % (9.0-15.0)
[2023-10-20 05:00] VITALS: RESP 20; TEMP 97.2; O2SAT 98
[2023-10-20 05:17] LABS: ALANINE AMINOTRANSFERASE 12 U/L (12-78); ALBUMIN 2.3 g/dL (3.4-4.8); ANION GAP 9 (5-15); ASPARTATE AMINOTRANSFERASE 18 U/L (10-37); CALCIUM 8.2 mg/dL (8.4-11.0); CARBON DIOXIDE 21 mmol/L (23-29); CHLORIDE 109 mmol/L (98-107); CREATININE 1.86 mg/dL (0.55-1.30); GLUCOSE 100 mg/dL (74-106); POTASSIUM 4.8 mmol/L (3.5-5.1); SODIUM SERUM 139 mmol/L (136-145); TOTAL BILIRUBIN 0.2 mg/dL (0.0-1.0); TOTAL PROTEIN, SERUM 6.7 g/dL (6.4-8.3); UREA NITROGEN, BLOOD 30 mg/dL (8-21)
[2023-10-20 08:22] VITALS: BP_SYST 133; PULSE 66; RESP 15; TEMP 99; O2SAT 98
[2023-10-20 11:10] VITALS: BP_SYST 134; PULSE 86; RESP 18; TEMP 98.6; O2SAT 98
[2023-10-20 16:43] VITALS: BP_SYST 130; PULSE 80; RESP 17; TEMP 98; O2SAT 97
[2023-10-20 20:00] VITALS: BP_SYST 149; PULSE 78; RESP 18; TEMP 97.5; O2SAT 96
[2023-10-20] MEDS: HYDROcodone/ACETAMIN 10-325 MG TAB PO PRN (21:59)
[2023-10-21 01:15] VITALS: BP_SYST 157; PULSE 96; RESP 22; TEMP 98.7; O2SAT 96
[2023-10-21 08:00] VITALS: BP_SYST 139; PULSE 86; RESP 16; TEMP 98
[2023-10-21 08:30] VITALS: O2SAT 95
[2023-10-21] MEDS ORDERED: SUCR1TAB2 PO (09:42)
[2023-10-21] MEDS ORDERED: ESOM40CA53 PO (09:42)
[2023-10-21 10:59] VITALS: BP_SYST 121; PULSE 74; RESP 18; TEMP 97.9; O2SAT 96
[2023-10-21 11:25] VITALS: BP_SYST 121; PULSE 74; RESP 18; TEMP 97.9; O2SAT 96
== END 2023-10-21 12:55 | disposition home health service (06) | DRG 380 ==
LOC: SED 13:42 → STU 17:09 → SMU 10-19 22:45
PROVIDERS: ADMIT Family Medicine; ATTEND Family Medicine
PROC: 30233N1 Transfusion of Nonautologous Red Blood Cells into Peripheral Vein, Percutaneous Approach (ICD-10-PCS; principal; 2023-10-17)
DX: K26.5 Chronic or unspecified duodenal ulcer with perforation (principal); N17.0 Acute kidney failure with tubular necrosis; E44.1 Mild protein-calorie malnutrition; I12.9 Hypertensive chronic kidney disease with stage 1 through stage 4 chronic kidney disease, or unspecified chronic kidney disease; Z68.24 Body mass index [BMI] 24.0-24.9, adult; N18.9 Chronic kidney disease, unspecified; E03.9 Hypothyroidism, unspecified; I25.10 Atherosclerotic heart disease of native coronary artery without angina pectoris; K57.90 Diverticulosis of intestine, part unspecified, without perforation or abscess without bleeding; K44.9 Diaphragmatic hernia without obstruction or gangrene; K80.20 Calculus of gallbladder without cholecystitis without obstruction; M19.90 Unspecified osteoarthritis, unspecified site
CPT/HCPCS: 36415; 71045; 74150-TC; 80048; 80053; 80076; 81001; 81003; 82150; 83605; 83615; 83690; 84484; 85025; 85610; 85730; 86886; 86900; 86901; 86920; 93005; 94070; 94760; 97110-GP; 97116-GP; 97530-GP; 99285; C9113; G0378; J2270; J2405; P9021; Q9964

== ENCOUNTER 2023-10-22 15:19 | Inpatient (IN) | payer BC ==
[~2023-10-22] VITALS: Ht 177.8 cm; Wt 78.0 kg
[~2023-10-22 15:19] MED LIST changes: +ATOR20TA64 PO; +ESOM40CA53 PO; +FURO20TA4 PO; +LEVO75TA7 PO; +METO-304 PO; +SUCR1TAB2 PO; +TERAZOSIN
[2023-10-22 15:20] VITALS: BP_SYST 131; PULSE 77; RESP 18; TEMP 99.1; O2SAT 98
[2023-10-22 16:16] LABS: BASOPHILS # (AUTO) 0.1 K/uL (0.0-0.2); BASOPHILS % (AUTO) 0.6 % (0.0-2.0); EOSINOPHILS # (AUTO) 0.1 K/uL (0.0-0.4); EOSINOPHILS % (AUTO) 1.4 % (0.0-4.0); HEMOGLOBIN 9.8 g/dL (14.0-18.0); LYMPHOCYTES % (AUTO) 10.2 % (20.5-51.5); MEAN CORPUSCULAR HEMOGLOBIN 31 pg (27-31); MEAN CORPUSCULAR HGB CONC 34 % (32-36); MEAN CORPUSCULAR VOLUME 91 fL (79.0-98.0); MONOCYTES # (AUTO) 1.1 K/uL (0.0-1.0); MONOCYTES % (AUTO) 10.4 % (1.7-9.3); NEUTROPHILS # (AUTO) 7.8 K/uL (1.8-7.7); NEUTROPHILS % (AUTO) 77.4 % (40.0-70.0); PLATELET COUNT (AUTO) 397 K/uL (130-430); RED CELL DISTRIBUTION WIDTH 14.1 % (9.0-15.0); WHITE BLOOD COUNT (AUTO) 10.1 K/uL (4.8-10.8)
[2023-10-22 16:32] LABS: ANION GAP 14 (5-15); CALCIUM 9.1 mg/dL (8.4-11.0); CARBON DIOXIDE 21 mmol/L (23-29); CHLORIDE 106 mmol/L (98-107); CREATININE 2.08 mg/dL (0.55-1.30); GLUCOSE 108 mg/dL (74-106); POTASSIUM 3.9 mmol/L (3.5-5.1); SODIUM SERUM 141 mmol/L (136-145); UREA NITROGEN, BLOOD 39 mg/dL (8-21)
[2023-10-22 17:21] LABS: BILIRUBIN,URINE NEGATIVE (NEGATIVE); CLARITY/URINE CLEAR (CLEAR); COLOR,URINE YELLOW (YELLOW); GLUCOSE,URINE NEGATIVE (NEGATIVE); KETONES,URINE NEGATIVE (NEGATIVE); LEUKOCYTE ESTERASE ,URINE NEGATIVE (NEGATIVE); NITRITE, URINE NEGATIVE (NEGATIVE); PROTEIN URINE 1+ (NEGATIVE); UROBILINOGEN,URINE 0.2 (0.2-1.0)
[2023-10-22 17:22] LABS: BLOOD, URINE TRACE (NEGATIVE)
[2023-10-22 17:28] LABS: BACTERIA,URINE None Seen /HPF (None Seen); RBC,URINE 0-3 /HPF (0-3); WBC,URINE 0-3 /HPF (0-3)
[2023-10-22] MEDS ORDERED: CHOLECALCIFEROL (VITAMIN D3) 2,000 UNIT TABLET PO PRN (22:45)
[2023-10-22] MEDS ORDERED: ASCORBIC ACID 500 MG TABLET PO PRN (22:45)
[2023-10-22] MEDS: NS 500 ML IV ONE (22:55)
[2023-10-23] VITALS (9 sets, daily range): BP systolic 119–144; PULSE 68–84; RESP 16–18; TEMP 97.4–98.4; O2SAT 93–99
[2023-10-23] MEDS ORDERED: MELO5CAP2 (00:10)
[2023-10-23] MEDS ORDERED: TERA1CAP4 PO (06:39)
[2023-10-23] MEDS ORDERED: MELO-89 PO (06:39)
[2023-10-23] MEDS ORDERED: CHOLECALCIFEROL (VITAMIN D3) 2,000 UNIT TABLET PO SCH (07:57)
[2023-10-23] MEDS ORDERED: CHOLECALCIFEROL (VITAMIN D3) 2,000 UNIT TABLET PO PRN (08:00)
[2023-10-23] MEDS ORDERED: ASCORBIC ACID 500 MG TABLET PO PRN (08:15)
[2023-10-23] MEDS: LEVOTHYROXINE SODIUM 0.075 MG TABLET PO SCH (08:51)
[2023-10-23] MEDS: TAMSULOSIN HCL 0.4 MG CAP PO SCH (08:51)
[2023-10-23] MEDS: SUCRALFATE 1 GM TABLET PO SCH (08:51)
[2023-10-23] MEDS: FUROSEMIDE 20 MG TABLET PO PRN (08:52)
[2023-10-23] MEDS: ATORVASTATIN 20 MG TABLET PO SCH (08:52)
[2023-10-23] MEDS: METOPROLOL SUCCINATE 25 MG TAB.SR.24H (TOPROL XL) PO SCH (08:52)
[2023-10-23] MEDS ORDERED: SUCRALFATE 1 GM TABLET PO SCH (09:00)
[2023-10-23] MEDS ORDERED: METOPROLOL SUCCINATE 25 MG TAB.SR.24H (TOPROL XL) PO SCH (09:00)
[2023-10-23] MEDS ORDERED: ATORVASTATIN 20 MG TABLET PO SCH (09:00)
[2023-10-23] MEDS ORDERED: TAMSULOSIN HCL 0.4 MG CAP PO SCH (09:00)
[2023-10-23] MEDS ORDERED: ALBUTEROL MDI INHALATION 8 GM INH INH SCH (20:00)
[2023-10-23] MEDS: TERAZOSIN HCL 1 MG CAPSULE (HYTRIN) PO SCH (20:52)
[2023-10-23] MEDS: FUROSEMIDE 20 MG TABLET PO SCH (20:52)
[2023-10-23] MEDS ORDERED: NON-FORMULARY MEDICATION (Esomeprazole Magnesium 40 MG) PO SCH (21:00)
[2023-10-23] MEDS: ALBUTEROL SULFATE 0.083% 2.5 MG/3 ML VIAL.NEB INH SCH (22:19)
[2023-10-24] VITALS (9 sets, daily range): BP systolic 104–139; PULSE 63–77; RESP 15–18; TEMP 97.6–98.1; O2SAT 95–98
[2023-10-24 05:29] LABS: BASOPHILS % (AUTO) 0.5 % (0.0-2.0); EOSINOPHILS # (AUTO) 0.3 K/uL (0.0-0.4); EOSINOPHILS % (AUTO) 4.9 % (0.0-4.0); HEMOGLOBIN 7.8 g/dL (14.0-18.0); LYMPHOCYTES % (AUTO) 15.3 % (20.5-51.5); MEAN CORPUSCULAR HEMOGLOBIN 31 pg (27-31); MEAN CORPUSCULAR HGB CONC 34 % (32-36); MEAN CORPUSCULAR VOLUME 91 fL (79.0-98.0); MONOCYTES # (AUTO) 0.8 K/uL (0.0-1.0); NEUTROPHILS # (AUTO) 4.2 K/uL (1.8-7.7); NEUTROPHILS % (AUTO) 66.3 % (40.0-70.0); PLATELET COUNT (AUTO) 325 K/uL (130-430); RED BLOOD CELL COUNT(AUTO) 2.54 MIL/uL (4.2-6.2); RED CELL DISTRIBUTION WIDTH 14.1 % (9.0-15.0); WHITE BLOOD COUNT (AUTO) 6.3 K/uL (4.8-10.8)
[2023-10-24 05:52] LABS: ANION GAP 9 (5-15); CALCIUM 7.9 mg/dL (8.4-11.0); CARBON DIOXIDE 24 mmol/L (23-29); CHLORIDE 104 mmol/L (98-107); CREATININE 2.06 mg/dL (0.55-1.30); GLUCOSE 104 mg/dL (74-106); POTASSIUM 3.8 mmol/L (3.5-5.1); SODIUM SERUM 137 mmol/L (136-145); UREA NITROGEN, BLOOD 36 mg/dL (8-21)
[2023-10-24] MEDS: PANTOPRAZOLE SODIUM 40 MG TAB PO SCH (09:05)
[2023-10-24] MEDS: LEVOTHYROXINE SODIUM 0.075 MG TABLET PO SCH (09:05)
[2023-10-24 12:13] LABS: TOTAL IRON BIND. CAPACITY 172 ug/dL (250-450)
[2023-10-24] MEDS: MUPIROCIN 1 GM OIN.PF.APP NS SCH (21:00)
[2023-10-25] VITALS (7 sets, daily range): BP systolic 111–129; PULSE 78–85; RESP 17–20; TEMP 98–98.7; O2SAT 93–98
[2023-10-25 06:33] LABS: BASOPHILS % (AUTO) 0.4 % (0.0-2.0); EOSINOPHILS # (AUTO) 0.3 K/uL (0.0-0.4); EOSINOPHILS % (AUTO) 4.5 % (0.0-4.0); HEMATOCRIT 23.3 % (36-54); HEMOGLOBIN 7.9 g/dL (14.0-18.0); LYMPHOCYTES # (AUTO) 0.8 K/uL (1.0-5.5); LYMPHOCYTES % (AUTO) 12.7 % (20.5-51.5); MEAN CORPUSCULAR HEMOGLOBIN 31 pg (27-31); MEAN CORPUSCULAR HGB CONC 34 % (32-36); MEAN CORPUSCULAR VOLUME 91 fL (79.0-98.0); MONOCYTES # (AUTO) 0.9 K/uL (0.0-1.0); MONOCYTES % (AUTO) 13.9 % (1.7-9.3); NEUTROPHILS # (AUTO) 4.4 K/uL (1.8-7.7); NEUTROPHILS % (AUTO) 68.5 % (40.0-70.0); PLATELET COUNT (AUTO) 329 K/uL (130-430); RED BLOOD CELL COUNT(AUTO) 2.57 MIL/uL (4.2-6.2); RED CELL DISTRIBUTION WIDTH 13.7 % (9.0-15.0); WHITE BLOOD COUNT (AUTO) 6.4 K/uL (4.8-10.8)
[2023-10-25 06:43] LABS: ANION GAP 11 (5-15); CARBON DIOXIDE 22 mmol/L (23-29); CHLORIDE 104 mmol/L (98-107); GLUCOSE 116 mg/dL (74-106); POTASSIUM 3.7 mmol/L (3.5-5.1); SODIUM SERUM 137 mmol/L (136-145); UREA NITROGEN, BLOOD 39 mg/dL (8-21)
[2023-10-25] MEDS: MUPIROCIN 2% TOPICAL OINTMENT 22 GM NS SCH (09:00)
[2023-10-26] VITALS (10 sets, daily range): BP systolic 109–124; PULSE 73–89; RESP 16–18; TEMP 97.3–98.8; O2SAT 95–98
[2023-10-26 07:14] LABS: BASOPHILS % (AUTO) 0.6 % (0.0-2.0); EOSINOPHILS # (AUTO) 0.4 K/uL (0.0-0.4); HEMATOCRIT 24.7 % (36-54); HEMOGLOBIN 8.4 g/dL (14.0-18.0); LYMPHOCYTES # (AUTO) 0.9 K/uL (1.0-5.5); LYMPHOCYTES % (AUTO) 14.7 % (20.5-51.5); MEAN CORPUSCULAR HEMOGLOBIN 30 pg (27-31); MEAN CORPUSCULAR HGB CONC 34 % (32-36); MEAN CORPUSCULAR VOLUME 89 fL (79.0-98.0); MONOCYTES # (AUTO) 0.8 K/uL (0.0-1.0); NEUTROPHILS # (AUTO) 3.9 K/uL (1.8-7.7); NEUTROPHILS % (AUTO) 64.7 % (40.0-70.0); PLATELET COUNT (AUTO) 332 K/uL (130-430); RED BLOOD CELL COUNT(AUTO) 2.76 MIL/uL (4.2-6.2); RED CELL DISTRIBUTION WIDTH 13.8 % (9.0-15.0); WHITE BLOOD COUNT (AUTO) 6.1 K/uL (4.8-10.8)
[2023-10-26 07:18] LABS: ANION GAP 10 (5-15); CALCIUM 8.1 mg/dL (8.4-11.0); CARBON DIOXIDE 24 mmol/L (23-29); CHLORIDE 108 mmol/L (98-107); CREATININE 1.88 mg/dL (0.55-1.30); GLUCOSE 99 mg/dL (74-106); POTASSIUM 4.2 mmol/L (3.5-5.1); SODIUM SERUM 142 mmol/L (136-145); UREA NITROGEN, BLOOD 34 mg/dL (8-21)
[2023-10-26] MEDS: D5/0.45 NS 1,000 ML IV SCH (07:53)
[2023-10-27] VITALS (8 sets, daily range): BP systolic 107–137; PULSE 71–82; RESP 16–18; TEMP 97.1–98.7; O2SAT 94–99
[2023-10-27 05:51] LABS: BASOPHILS % (AUTO) 0.5 % (0.0-2.0); EOSINOPHILS # (AUTO) 0.3 K/uL (0.0-0.4); EOSINOPHILS % (AUTO) 4.9 % (0.0-4.0); HEMATOCRIT 24.5 % (36-54); HEMOGLOBIN 8.3 g/dL (14.0-18.0); LYMPHOCYTES % (AUTO) 14.3 % (20.5-51.5); MEAN CORPUSCULAR HEMOGLOBIN 31 pg (27-31); MEAN CORPUSCULAR HGB CONC 34 % (32-36); MONOCYTES % (AUTO) 13.3 % (1.7-9.3); NEUTROPHILS # (AUTO) 4.8 K/uL (1.8-7.7); PLATELET COUNT (AUTO) 370 K/uL (130-430); RED BLOOD CELL COUNT(AUTO) 2.71 MIL/uL (4.2-6.2); WHITE BLOOD COUNT (AUTO) 7.2 K/uL (4.8-10.8)
[2023-10-27 06:19] LABS: ALANINE AMINOTRANSFERASE 12 U/L (12-78); ALBUMIN 2.1 g/dL (3.4-4.8); ANION GAP 11 (5-15); ASPARTATE AMINOTRANSFERASE 11 U/L (10-37); CALCIUM 8.4 mg/dL (8.4-11.0); CARBON DIOXIDE 26 mmol/L (23-29); CHLORIDE 104 mmol/L (98-107); CREATININE 2.38 mg/dL (0.55-1.30); GLUCOSE 118 mg/dL (74-106); PHOSPHORUS 2.9 mg/dL (2.7-4.5); POTASSIUM 4.1 mmol/L (3.5-5.1); SODIUM SERUM 141 mmol/L (136-145); TOTAL BILIRUBIN 0.2 mg/dL (0.0-1.0); TOTAL PROTEIN, SERUM 6.6 g/dL (6.4-8.3); UREA NITROGEN, BLOOD 40 mg/dL (8-21)
[2023-10-27 07:56] LABS: MEAN CORPUSCULAR VOLUME 91 fL (79.0-98.0)
[2023-10-27] MEDS: IRON DEXTRAN COMPLEX 25 MG in NS 50 ML TEST DOSE IV ONE (11:48)
[2023-10-27] MEDS: IRON DEXTRAN COMPLEX 75 MG in NS 100 ML IV ONE (14:11)
[2023-10-28] VITALS (8 sets, daily range): BP systolic 102–136; PULSE 67–77; RESP 15–18; TEMP 97.6–98.5; O2SAT 94–98
[2023-10-28 04:09] LABS: BASOPHILS # (AUTO) 0.1 K/uL (0.0-0.2); EOSINOPHILS # (AUTO) 0.3 K/uL (0.0-0.4); EOSINOPHILS % (AUTO) 5.2 % (0.0-4.0); HEMATOCRIT 24.1 % (36-54); HEMOGLOBIN 8.2 g/dL (14.0-18.0); LYMPHOCYTES # (AUTO) 0.9 K/uL (1.0-5.5); LYMPHOCYTES % (AUTO) 14.7 % (20.5-51.5); MEAN CORPUSCULAR HEMOGLOBIN 31 pg (27-31); MEAN CORPUSCULAR HGB CONC 34 % (32-36); MEAN CORPUSCULAR VOLUME 91 fL (79.0-98.0); MONOCYTES # (AUTO) 0.9 K/uL (0.0-1.0); MONOCYTES % (AUTO) 15.9 % (1.7-9.3); NEUTROPHILS # (AUTO) 3.7 K/uL (1.8-7.7); NEUTROPHILS % (AUTO) 63.2 % (40.0-70.0); PLATELET COUNT (AUTO) 375 K/uL (130-430); RED BLOOD CELL COUNT(AUTO) 2.66 MIL/uL (4.2-6.2); RED CELL DISTRIBUTION WIDTH 14.1 % (9.0-15.0); WHITE BLOOD COUNT (AUTO) 5.9 K/uL (4.8-10.8)
[2023-10-28 04:33] LABS: ALANINE AMINOTRANSFERASE 17 U/L (12-78); ALBUMIN 2.1 g/dL (3.4-4.8); ANION GAP 9 (5-15); ASPARTATE AMINOTRANSFERASE 17 U/L (10-37); CALCIUM 7.6 mg/dL (8.4-11.0); CARBON DIOXIDE 25 mmol/L (23-29); CHLORIDE 105 mmol/L (98-107); CREATININE 2.32 mg/dL (0.55-1.30); GLUCOSE 116 mg/dL (74-106); POTASSIUM 4.2 mmol/L (3.5-5.1); SODIUM SERUM 139 mmol/L (136-145); TOTAL BILIRUBIN 0.2 mg/dL (0.0-1.0); TOTAL PROTEIN, SERUM 6.5 g/dL (6.4-8.3); UREA NITROGEN, BLOOD 44 mg/dL (8-21)
[2023-10-28] MEDS ORDERED: FERR236T3 PO (13:55)
[2023-10-28] MEDS: IRON DEXTRAN COMPLEX 100 MG in NS 100 ML IV SCH (14:15)
[2023-10-29] VITALS (7 sets, daily range): BP systolic 117–139; PULSE 70–82; RESP 17–18; TEMP 96.8–99; O2SAT 95–98
== END 2023-10-29 18:00 | disposition home health service (06) | DRG 683 ==
LOC: SED 15:19 → SMU 22:40
PROVIDERS: ADMIT Specialist; ATTEND Specialist
DX: N17.9 Acute kidney failure, unspecified (principal); F03.93 Unspecified dementia, unspecified severity, with mood disturbance; D50.9 Iron deficiency anemia, unspecified; F32.A Depression, unspecified; E03.9 Hypothyroidism, unspecified; E78.5 Hyperlipidemia, unspecified; I12.9 Hypertensive chronic kidney disease with stage 1 through stage 4 chronic kidney disease, or unspecified chronic kidney disease; I25.10 Atherosclerotic heart disease of native coronary artery without angina pectoris; M19.90 Unspecified osteoarthritis, unspecified site; N18.9 Chronic kidney disease, unspecified; K44.9 Diaphragmatic hernia without obstruction or gangrene; K80.20 Calculus of gallbladder without cholecystitis without obstruction; E83.52 Hypercalcemia; N40.0 Benign prostatic hyperplasia without lower urinary tract symptoms; K57.30 Diverticulosis of large intestine without perforation or abscess without bleeding; Z79.899 Other long term (current) drug therapy; Z79.51 Long term (current) use of inhaled steroids; W18.30XD Fall on same level, unspecified, subsequent encounter
CPT/HCPCS: 36415; 70450-TC; 71045; 76770; 80048; 80053; 81000; 81001; 81015; 82272; 82550; 83010; 83540; 83550; 83735; 84100; 84484; 85025; 85044; 87081; 94070; 94640; 94760; 96360; 97110-GP; 97116-GP; 97530-GP; 99285; J1750